=== PATIENT | female | born 1955 | race Caucasian/White ===

== ENCOUNTER → 2017-03-16 17:02 | Outpatient (CLI) | payer MEDICARE ==
[2014-11-02 08:06] VITALS: BMI 20.2
[~2017-03-16 17:02] MED LIST: CELEXA40 MG PO; HYDROCODONE-APA1 TAB PO; NEURONTIN800 MG PO; NEXIUM40 MG PO; TOPAMAX100 MG PO; WELLBUTRIN XL150 M1
== END | disposition home or self-care (01) ==
LOC: D.MAMMO 11:45
DX: Z12.31 Encounter for screening mammogram for malignant neoplasm of breast (principal)

== ENCOUNTER → 2017-04-10 07:46 | Outpatient (CLI) | payer MEDICARE ==
[2014-11-02 08:06] VITALS: BMI 20.2
== END | disposition home or self-care (01) ==
LOC: D.RT 07:46
DX: R91.1 Solitary pulmonary nodule (principal); J44.9 Chronic obstructive pulmonary disease, unspecified

== ENCOUNTER 2018-06-22 14:19 | Emergency (ER) | payer MEDICARE ==
[~2018-06-22] VITALS: Ht 167.6 cm; Wt 53.6 kg
[~2018-06-22 14:19] MED LIST changes: -HYDROCODONE-APA1 TAB PO; +NORCO 7.5/325 T1 TA1 PO
[2018-06-22 14:32] VITALS: Ht 167.6 cm; Wt 53.6 kg
[2018-06-22] MEDS ORDERED: ZOLOFT100 MG PO (14:35)
[2018-06-22] MEDS ORDERED: TRAZODONE HCL100 MG PO (14:35)
[2018-06-22] MEDS ORDERED: OMEPRAZOLE40 MG PO (14:36)
[2018-06-22 15:34] LABS: BASOPHILS 0.3 % (0-2); EOSINOPHILS 1.1 % (0-7); HEMATOCRIT 40.1 % (36.0-48.0); HEMOGLOBIN 14.4 g/dL (12-16); IMMATURE GRANULOCYTES 0.1 % (0-5); LYMPHOCYTES 16.8 % (15-50); MCH 33.9 pg (26.0-34.0); MCHC 35.9 g/dL (31.0-37.0); MCV 94.4 fL (80.0-100.0); MONOCYTES 9.7 % (2-11); RBC 4.25 10x6/uL (4.00-5.40); RDW 13.2 % (11.5-14.5); WBC 7.6 10x3/uL (4.8-10.8)
[2018-06-22 15:38] LABS: PLATELET COUNT 174 10x3/uL (130-400)
[2018-06-22 15:40] LABS: APPEARANCE CLEAR (CLEAR); BILIRUBIN NEGATIVE (NEGATIVE); COLOR YELLOW (YELLOW); GLUCOSE NEGATIVE (NEGATIVE); KETONE NEGATIVE (NEGATIVE); NITRITE NEGATIVE (NEGATIVE); PROTEIN NEGATIVE (NEGATIVE); UROBILINOGEN NORMAL (NORMAL)
[2018-06-22 15:41] LABS: BACTERIA MANY /hpf (NONE SEEN); EPITHELIAL CELLS 0-5 /hpf (0-5); RED CELLS - URINE 0-5 /hpf (0-5)
[2018-06-22 16:02] LABS: UDS - AMPHET NEGATIVE QUAL (NEGATIVE); UDS - BARB NEGATIVE QUAL (NEGATIVE); UDS - BENZO NEGATIVE QUAL (NEGATIVE); UDS - COCAINE NEGATIVE QUAL (NEGATIVE); UDS - OPIATE NEGATIVE QUAL (NEGATIVE); UDS - PCP NEGATIVE QUAL (NEGATIVE); UDS - THC NEGATIVE QUAL (NEGATIVE)
[2018-06-22 16:03] LABS: ALBUMIN 3.6 g/dL (3.4-5.0); ALKALINE PHOSPHATASE 64 U/L (46-116); ALT (SGPT) 24 U/L (10-68); BILIRUBIN - TOTAL 0.34 mg/dL (0.2-1.3); CALC OSMOLALITY 267 mosm/kg (275-300); CALCIUM 9.1 mg/dL (8.5-10.1); CARBON DIOXIDE 27.8 mmol/L (21.0-32.0); CHLORIDE - SERUM 98 mmol/L (98-107); CREATININE - SERUM 0.8 mg/dL (0.6-1.3); GLUCOSE 87 mg/dL (74-106); POTASSIUM - SERUM 4.3 mmol/L (3.5-5.1); PROTEIN - SERUM 6.6 g/dL (6.4-8.2); SODIUM 134 mmol/L (136-145); UREA NITROGEN 14 mg/dL (7-18); eGFR NON AFRICAN AMERICAN 76 mL/min (90-120)
[2018-06-22] MEDS ORDERED: MACROBID100 MG PO (17:06)
[2018-06-22] MEDS ORDERED: MEGACE ES625 MG/5 M PO (17:06)
[2018-06-22 17:14] VITALS: BP 138/074
== END 2018-06-22 17:15 | disposition home or self-care (01) ==
LOC: D.ER 14:19
PROVIDERS: Emergency Medicine
DX: R41.0 Disorientation, unspecified (principal); N39.0 Urinary tract infection, site not specified; G89.29 Other chronic pain; Z86.19 Personal history of other infectious and parasitic diseases

== ENCOUNTER → 2018-08-03 16:47 | Outpatient (CLI) | payer MEDICARE ==
[2018-06-22 14:32] VITALS: BMI 19.0
[~2018-08-03 16:47] MED LIST changes: +MACROBID100 MG PO; +MEGACE ES625 MG/5 M PO; +OMEPRAZOLE40 MG PO; +TRAZODONE HCL100 MG PO; +ZOLOFT100 MG PO
== END | disposition home or self-care (01) ==
LOC: D.MAMMO 11:00
DX: Z12.31 Encounter for screening mammogram for malignant neoplasm of breast (principal)

== ENCOUNTER 2019-01-02 10:28 | Emergency (ER) | payer MEDICARE, OTHER ==
[~2019-01-02] VITALS: Ht 167.6 cm; Wt 54.5 kg
[2019-01-02 10:36] VITALS: Ht 167.6 cm; Wt 54.5 kg
[2019-01-02] MEDS ORDERED: VALIUM 2 MG TAB2 MG PO (11:57)
[2019-01-02 12:24] VITALS: BP 132/78
== END 2019-01-02 12:25 | disposition home or self-care (01) ==
LOC: D.ER 10:28
DX: S16.1XXA Strain of muscle, fascia and tendon at neck level, initial encounter (principal); W18.2XXA Fall in (into) shower or empty bathtub, initial encounter; S01.01XA Laceration without foreign body of scalp, initial encounter; S32.019A Unspecified fracture of first lumbar vertebra, initial encounter for closed fracture; S33.8XXA Sprain of other parts of lumbar spine and pelvis, initial encounter

== ENCOUNTER → 2019-02-24 08:47 | Outpatient (CLI) | payer MEDICARE, OTHER ==
[2019-01-02 10:36] VITALS: BMI 19.4
[~2019-02-24 08:47] MED LIST changes: +VALIUM 2 MG TAB2 MG PO
--- NOTE | 2019-03-02 14:31 | EC ---
PATIENT:MARQUITA ARTEAGA DATE OF SERVICE: 02/24/19 SEX: F MEDICAL RECORD: [id number] DATE OF : [birth year] LOCATION:[facility] AGE OF PATIENT: 63 ADMISSION DATE: 02/24/19 REFERRING PHYSICIAN: INTERPRETING PHYSICIAN: JORGE SANCHEZ MD ECHOCARDIOGRAM REPORT ECHO CHARGES 4 ECHO COMPLETE Date: 02/24/19 CLINICAL DIAGNOSIS: AI ECHOCARDIOGRAPHIC MEASUREMENTS (adult normal given) AC root (d.<3.7cm) 3.0 cm LV Septum d (<1.2 cm> 1.0 cm Valve Excursion 1.8 cm LV Septum (systole) 1.6 cm Left Atria (s.<4.0cm> 4.0 cm LVPW d(<1.2cm) 1.1 cm RV (d.<2.3cm) 2.4 cm LVPW (sytole) 1.6 cm LV diastole(<5.6CM) 5.1 cm MV E-F(>70mm/sec) cm LV systole 2.9 cm LVOT Diameter 1.9 cm MV exc.(>10mm) cm Est.ejection fraction (50-75%) % DOPPLER: LVIT cm/sec A 127 cm/sec E 157 cm/sec LA cm/sec RVSP 27.1 mmHg LVOT 135 cm/sec AOP1/2T m/s Asc. Ao 186 cm/sec RVOT 43.0 cm/sec RA cm/sec PA 87.0 cm/sec AV Gradient Peak 14.0 mmHg AV Mean 6.4 mmHg AV Area 1.9 cm MV Gradient Peak 4.6 mmHg MV Mean 1.3 mmHg MV Area cm COMMENTS: OP - [employer] Appraiser: 1 NICANOR LOWELL Shop Director: 1 Dr. Sanchez TAPE# PACS Pericardial Effusion N DATE OF SERVICE: Echocardiogram FINDINGS: 1. Left ventricular chamber size is within normal limits. Left ventricular systolic function is normal. Overall ejection fraction estimated at 55% to 60%. 2. Left atrium is upper limits of normal at 4.0 cm. Right atrium and right ventricular chamber sizes are mildly dilated. 3. Valvular structures have normal structure and motion. ECHOCARDIOGRAM REPORT [id number] MARQUITA ARTEAGA 4. Doppler interrogation reveals moderate aortic insufficiency, mild mitral regurgitation, trace tricuspid regurgitation. No other valvular insufficiency or stenosis. Pulmonary systolic pressure is estimated at 27 mmHg. 5. No evidence of pericardial effusion or left ventricular thrombus. TRANSINT:[id number] Voice Confirmation ID: [id number] DOCUMENT ID: [id number] JORGE SANCHEZ MD at 1431 CC: [id number] DICTATION DATE: 02/25/19212 REIMBURSEMENT AUDITOR: 02/25/19 0659 DEP CLI 02/24/[address] [id number]
== END | disposition home or self-care (01) ==
LOC: D.HCCARDIO 08:47
PROVIDERS: ATTEND Internal Medicine Interventional Cardiology
DX: I35.1 Nonrheumatic aortic (valve) insufficiency (principal)

== ENCOUNTER → 2020-03-14 08:19 | Outpatient (CLI) | payer MEDICARE, OTHER ==
[2019-01-02 10:36] VITALS: BMI 19.4
== END | disposition home or self-care (01) ==
LOC: D.HCCECHO 08:19
PROVIDERS: ATTEND Internal Medicine Cardiovascular Disease
DX: I35.1 Nonrheumatic aortic (valve) insufficiency (principal)